=== PATIENT | female | born 1985 | race Caucasian/White ===

== ENCOUNTER 2017-02-24 02:25 | Emergency (ER) | payer SELFPAY ==
[~2017-02-24] VITALS: Ht 165.1 cm; Wt 81.6 kg
[2017-02-24] MEDS ORDERED: SODIUM CHLORIDE 0.9% 1,000 ML IVB ONE (03:04)
[2017-02-24 03:59] LABS: Basophils # (auto) 0 uL; Basophils % (auto) 0.1 % (0.0-2.0); CONDITION Y; DEFINITIVE SEE PRINTOUT; Eosinophils # (auto) 0 uL; Hematocrit 41.1 % (36.0-46.0); Hemoglobin 13.9 g/dL (12.2-16.2); Lymphocytes # (auto) 1.6 uL; Lymphocytes % (auto) 13.4 % (10.0-50.0); Mean Corpuscular Hemoglobin 35.5 pg (28.0-32.0); Mean Corpuscular Hgb Conc. 33.7 g/dL (32.0-36.0); Mean Corpuscular Volume 105.4 fL (80.0-100.0); Mean Platelet Volume 7.4 fL (7.4-10.4); Monocytes # (auto) 0.8 uL; Monocytes % (auto) 6.5 % (0.0-12.0); Neutrophils # (auto) 9.6 uL; Platelet Count (auto) 422 10^3/uL (140-450); Red Cell Distribution Width 15.6 % (11.6-16.0)
[2017-02-24 04:30] LABS: Albumin 3.5 g/dL (3.4-5.0); BUN/Creatinine Ratio 31.1; Calcium 8.3 mg/dL (8.5-10.1); Magnesium 3.7 mg/dL (1.6-2.6)
[2017-02-24 04:33] LABS: Bilirubin, Total 3.9 mg/dL (0.2-1.0); Total Protein 8.1 g/dL (6.4-8.2)
[2017-02-24 04:44] LABS: Potassium 2.7 mmol/L (3.5-5.1)
[2017-02-24] MEDS ORDERED: SODIUM CHLORIDE 0.9% 1,000 ML IV ONE (05:00)
[2017-02-24] MEDS ORDERED: IOHEXOL 300 MG/ML 100ML BOTTLE IJ ONE (06:12)
[2017-02-24] MEDS ORDERED: POTASSIUM CHL 10% (20 MEQ/15ML) 15ml ORAL SOLN PO ONE (06:45)
[2017-02-24] MEDS ORDERED: PANTOPRAZOLE 40 MG TAB PO ONE (06:45)
[2017-02-24 08:18] LABS: Urine Blood 3+ /uL (Negative); Urine Color Yellow (Yellow); Urine Glucose Normal (Normal); Urine Hyaline Cast FEW /lpf (0 - 2); Urine Ketone 3+ (Negative); Urine Mucus FEW (None Seen); Urine Nitrite Negative (Negative); Urine RBC 23 /hpf (0 - 4); Urine Squamous Epithelial Cell FEW /hpf (<5); Urine pH 6.5 (5.0-8.0)
[2017-02-24 08:19] LABS: Lactic Acid w/Reflex 4.1 mmol/L (0.4-2.0)
[2017-02-24 08:21] LABS: REFLEX LACTIC ACID YES OR NO YES
[2017-02-24 08:37] LABS: Urine Bilirubin POSITIVE (Negative)
[2017-02-24] MEDS ORDERED: LORazepam 2MG/ML-1ML VIAL IV ONE ×2 (09:45→14:00)
[2017-02-24] MEDS ORDERED: THIAMINE INJ 100 MG, MULTIPLE VITAMIN 10 ML, FOLIC ACID 1 MG, MAGNESIUM SULF SDV 50% 8 ... IV SCH ×5 (12:00)
[2017-02-24 16:48] VITALS: BP 142/61
== END 2017-02-24 16:53 | disposition short-term general hospital (02) ==
LOC: EDBD 02:25 → ER 02:31
DX: K85.90 Acute pancreatitis without necrosis or infection, unspecified (principal); E87.1 Hypo-osmolality and hyponatremia; E87.6 Hypokalemia; E86.0 Dehydration; E87.8 Other disorders of electrolyte and fluid balance, not elsewhere classified; E11.65 Type 2 diabetes mellitus with hyperglycemia; E83.41 Hypermagnesemia
CPT/HCPCS: 36415; 71020; 74177; 80053; 80307; 80320; 81001; 83605; 83690; 83735; 84443; 84702; 85025; 93005; 96361; 96365; 96366; 96375; 96376; 99285; J2060; J3411; J3475; J7030; Q9967

== ENCOUNTER 2018-06-12 08:12 | Emergency (ER) | payer MEDICAID ==
[~2018-06-12] VITALS: Ht 160 cm; Wt 81.6 kg
[2018-06-12] MEDS ORDERED: SODIUM CHLORIDE 0.9% 1,000 ML IV ONE ×2 (08:48→11:30)
[2018-06-12 09:22] LABS: Basophils # (auto) 0.1 uL; Basophils % (auto) 0.7 % (0.0-2.0); Eosinophils # (auto) 0 uL; Hematocrit 41.4 % (36.0-46.0); Hemoglobin 13.3 g/dL (12.2-16.2); Lymphocytes # (auto) 1.2 uL; Mean Corpuscular Hgb Conc. 32.1 g/dL (32.0-36.0); Mean Corpuscular Volume 96.4 fL (80.0-100.0); Monocytes # (auto) 0.8 uL; Monocytes % (auto) 7.6 % (0.0-12.0); Neutrophils # (auto) 8.2 uL; Neutrophils % (auto) 79.7 % (37.0-80.0); Nucleated Red Blood Cells % 0.1 %; Platelet Count (auto) 261 10^3/uL (140-450); Red Blood Cells 4.29 10^6/uL (4.0-5.20); Red Cell Distribution Width 18.3 % (11.8-14.3); White Blood Cell 10.3 10^3/uL (4.4-10.8)
[2018-06-12] MEDS ORDERED: chlordiazePOXIDE HCL 25 MG CAP PO ONE (09:30)
[2018-06-12 09:40] LABS: Albumin 4.3 g/dL (3.4-5.0); Calcium 8.7 mg/dL (8.5-10.1); Magnesium 2.5 mg/dL (1.6-2.6); Potassium 3.3 mmol/L (3.5-5.1)
[2018-06-12 09:51] LABS: BUN/Creatinine Ratio 16.7; Bilirubin, Total 3.4 mg/dL (0.2-1.0)
[2018-06-12] MEDS ORDERED: THIAMINE 100mg/ml INJ (200mg/2ml VIAL) IV ONE (11:30)
[2018-06-12 11:38] VITALS: BP 139/80
== END 2018-06-12 11:51 | disposition left against medical advice (07) ==
LOC: EDBD 08:12 → ER 08:14
DX: G89.4 Chronic pain syndrome (principal); M54.5 Low back pain; M25.552 Pain in left hip; R51 Headache; F10.20 Alcohol dependence, uncomplicated; F17.210 Nicotine dependence, cigarettes, uncomplicated
CPT/HCPCS: 36415; 80053; 80320; 83735; 85025; 94761; 99284; J7030

== ENCOUNTER 2018-08-30 04:58 | Emergency (ER) | payer MEDICAID ==
[~2018-08-30] VITALS: Ht 162.6 cm; Wt 70.3 kg
[2018-08-30] MEDS ORDERED: SODIUM CHLORIDE 0.9% 1,000 ML IVB ONE (12:28)
[2018-08-30] MEDS ORDERED: ONDANSETRON HCL 4 MG/2 ML VIAL IV ONE (12:30)
[2018-08-30] MEDS ORDERED: MULTIPLE VITAMIN 10 ML, MAGNESIUM SULF SDV 50% 8 MEQ in SODIUM CHLORIDE 0.9% 1,000 ML IV SCH (13:15)
[2018-08-30 17:12] LABS: Basophils # (auto) 0 uL; Basophils % (auto) 0.4 % (0.0-2.0); Eosinophils # (auto) 0 uL; Hematocrit 37.3 % (36.0-46.0); Hemoglobin 12.4 g/dL (12.2-16.2); Lymphocytes # (auto) 2.2 uL; Lymphocytes % (auto) 24.1 % (10.0-50.0); Mean Corpuscular Hemoglobin 31.6 pg (28.0-32.0); Mean Corpuscular Hgb Conc. 33.4 g/dL (32.0-36.0); Mean Corpuscular Volume 94.7 fL (80.0-100.0); Monocytes # (auto) 0.8 uL; Monocytes % (auto) 8.5 % (0.0-12.0); Neutrophils # (auto) 6.1 uL; Nucleated Red Blood Cells % 0.1 %; Platelet Count (auto) 238 10^3/uL (140-450); Red Blood Cells 3.94 10^6/uL (4.0-5.20); Red Cell Distribution Width 15.1 % (11.8-14.3); White Blood Cell 9.1 10^3/uL (4.4-10.8)
[2018-08-30] MEDS ORDERED: ALPRAZolam 0.5 MG TAB PO ONE (17:15)
[2018-08-30 17:37] LABS: Chloride 94 mmol/L (98-107); Sodium 137 mmol/L (136-145)
[2018-08-30 17:45] LABS: Alanine Aminotransferase 163 U/L (13-56); Albumin 3.9 g/dL (3.4-5.0); Alkaline Phosphatase 127 U/L (45-117); Amylase 43 U/L (25-115); Anion Gap 18 (5-15); Aspartate Aminotransferase 208 U/L (15-37); BUN/Creatinine Ratio 26.8; Bilirubin, Total 2.1 mg/dL (0.2-1.0); Blood Alcohol < 3.0 mg/dL (0-5); Blood Urea Nitrogen 19 mg/dL (7-18); Calcium 8.6 mg/dL (8.5-10.1); Carbon Dioxide 25 mmol/L (21-32); GFR African American 120 mL/min; GFR Non-African American 100 mL/min; Glucose 103 mg/dL (74-106); Lipase 112 U/L (73-393); Magnesium 1.9 mg/dL (1.6-2.6); Total Protein 8.1 g/dL (6.4-8.2)
[2018-08-30 17:54] LABS: Potassium 2.9 mmol/L (3.5-5.1)
[2018-08-30] MEDS ORDERED: POTASSIUM CHL 20 Meq TABLET PO ONE (18:15)
[2018-08-30 18:51] VITALS: BP 115/89
== END 2018-08-30 19:41 | disposition left against medical advice (07) ==
LOC: EDBD 04:58 → ER 04:58
DX: R11.2 Nausea with vomiting, unspecified (principal); F10.20 Alcohol dependence, uncomplicated; R79.89 Other specified abnormal findings of blood chemistry; E87.6 Hypokalemia; M87.88 Other osteonecrosis, other site; F17.210 Nicotine dependence, cigarettes, uncomplicated; Z53.29 Procedure and treatment not carried out because of patient's decision for other reasons
CPT/HCPCS: 36415; 73700; 74176; 80053; 80320; 82150; 83690; 83735; 84702; 85025; 94761; 96361; 96365; 96366; 96375; 99284; J2405; J3475; J7030

== ENCOUNTER → 2020-09-24 | Emergency (ER) | payer MEDICAID | END | disposition left against medical advice (07) | LOC: ER 04:27 | DX: R07.9 Chest pain, unspecified (principal); Z53.21 Procedure and treatment not carried out due to patient leaving prior to being seen by health care provider ==

== ENCOUNTER 2023-09-06 21:33 | Emergency (ER) | payer MEDICAID ==
[~2023-09-06] VITALS: Ht 157.5 cm; Wt 63.5 kg
[2023-09-06 21:39] VITALS: BP 147/95; PULSE 120; RESP 24; O2SAT 100
== END 2023-09-06 23:06 | disposition left against medical advice (07) ==
LOC: EDBD 21:33 → EDUNIT# 21:33 → ER 21:33
DX: N89.8 Other specified noninflammatory disorders of vagina (principal); Z53.21 Procedure and treatment not carried out due to patient leaving prior to being seen by health care provider

== ENCOUNTER 2024-09-07 05:49 | Emergency (ER) | payer MEDICAID ==
[~2024-09-07] VITALS: Ht 157.5 cm; Wt 75.0 kg
[2024-09-07 10:04] VITALS: BP 144/96; TEMP 98
[2024-09-07 10:07] VITALS: PULSE 123; RESP 16; O2SAT 99
--- NOTE | 2024-09-07 10:23 | ED.PDOC ---
History of Present Illness HPI Comments 39F presents to the Er w/ no prior Hx associated to the c/c of Mental Health. Pt reports that her hands go numb, near syncope4 and palpitations as well as "I feel like I am going to ." Pt states "I feel sand on my feet and then it goes to my thighs". Pt notes that her hair is falling out, as well as her teeth. Pt states "I am shitting worms". PMHx of Anxiety, Depression. Denies chills, fever, N/V/D, SOB or no other associated symptom's, modifiers, recent injuries or sick contacts at this time. Chief Complaint: Mental Health Time Seen by MD: 09:30 Primary Care Provider: ANGÉLICA Reviewed Notes: Nurses Notes, Medications, Allergies Allergies: Coded Allergies: Codeine (Verified Allergy, Unknown, 09/06/23) Home Meds No Active Prescriptions or Reported Meds Information Source: Patient Mode of Arrival: Ambulatory Severity: Moderate Timing: Came on: Gradually Duration: Since onset Prehospital treatment: None Past Medical History PAST MEDICAL HISTORY: Anxiety, Depression Surgical History: Unknown CARDIOVASCULAR OR NURSE History: Unknown Family History Family History: Unknown Social History Smoker: Non-Smoker Alcohol: Denies ETOH Use Drugs: Denies Drug Use Lives In: Home Constitutional: denies: chills, diaphoresis, fatigue, fever, malaise, sweats, weakness, others EENTM: denies: blurred vision, double vision, ear bleeding, ear discharge, ear drainage, ear pain, ear ringing, eye pain, eye redness, hearing loss, mouth pain, mouth swelling, nasal discharge, nose bleeding, nose congestion, nose pain, photophobia, tearing, throat pain, throat swelling, voice changes, others Respiratory: denies: cough, hemoptysis, orthopnea, SOB at rest, shortness of breath, SOB with excertion, stridor, wheezing, others Cardiovascular: denies: chest pain, dizzy spells, diaphoresis, Dyspnea on exertion, edema, irregular heart beat, left arm pain, lightheadedness, palpitations, PND, syncope, others Gastrointestinal: denies: abdomen distended, abdominal pain, blood streaked bowels, constipated, diarrhea, dysphagia, difficulty swallowing, hematemesis, melena, nausea, poor appetite, poor fluid intake, rectal bleeding, rectal pain, vomiting, others Genitourinary: denies: abnormal vagina bleeding, burning, dyspareunia, dysuria, flank pain, frequency, hematuria, incontinence, pain, , vagina discharge, urgency, others Neurological: denies: dizziness, fainting, headache, left sided numbness, left sided weakness, numbness, paresthesia, pre-existing deficit, right sided numbness, right sided weakness, seizure, speech problems, tingling, tremors, weakness, others Musculoskeletal: denies: back pain, gout, joint pain, joint swelling, muscle pain, muscle stiffness, neck pain, others Integumetry: denies: bruises, change in color, change in hair/nails, dryness, laceration, lesions, lumps, rash, wounds, others Allergic/Immunocompromised: denies: Difficulty Healing, Frequent Infections, Hives, Itching, others Hematologic/Lymphatic: denies: anemia, blood clots, easy bleeding, easy bruising, swollen glands, others Endocrine: denies: excessive hunger, excessive sweating, excessive thirst, excessive urination, flushing, intolerance to cold, intolerance to heat, unexplained weight gain, unexplained weight loss, others Psychiatric: reports: schizophrenia; denies: anxiety, bipolar disorder, depression, hopeless, panic disorder, sleepless, suicidal, others All Other Systems: Reviewed and Negative Physical Exam General Appearance: Moderate Distress, Normal HEENT: Normal ENT Inspection, Pharynx Normal, TMs Normal Neck: Full Range of Motion, Non-Tender, Normal, Normal Inspection Respiratory: Chest Non-Tender, Lungs Clear, No Accessory Muscle Use, No Respiratory Distress, Normal Breath Sounds Cardiovascular: No Edema, No JVD, No Murmur, No Gallop, Normal Peripheral Pulses, Regular Rate/Rhythm Breast Exam: Deferred Gastrointestinal: No Organomegaly, Non Tender, No Pulsatile Mass, Normal Bowel Sounds, Soft Genitalia: Deferred Pelvic: Deferred Rectal: Deferred Extremities: No calf tenderness, Normal capillary refill, Normal inspection, Normal range of motion, Non-tender, No pedal edema Musculoskeletal : Apperance: Normal Neurologic: Alert, 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 Was a procedure done?: No Differential Dx Considerations may include: Drug use Electrolyte imbalance X-Ray, Labs, Meds, VS Vital Signs Date Time Temp Pulse Resp B/P (MAP) Pulse Ox O2 Delivery O2 Flow Rate FiO2 09/07/24 10:07 123 16 99 Room Air* 0 21 09/07/24 10:04 98.0 123 18 144/96 (112) 99 98.0 09/07/24 05:49 98.1 110 18 114/83 (93) 100 98.1 Patient alert. Anxious. Vitals stable. Answering questions. Saturation pristine on room air. No leg swelling. No shortness a breath. No chest pain. Medically cleared. Psychiatric evaluation. Continue to monitor. Time of 1ST Reevaluation: 10:00 Reevaluation 1ST: Improved Patient Education/Counseling: Diagnosis, Treatment, Prognosis Family Education/Counseling: Diagnosis, Treatment, Prognosis Departure 1 Departure Time of Disposition: 11:18 Impression: Primary Impression: Drug use Disposition: 30 STILL A PATIENT Condition: Good e-Prescriptions No Active Prescriptions or Reported Meds Critical Care Note Critical Care Time?: No Stability Stability form required: No Heart Score Heart Score: Heart Score Response (Comments) Value History N/A 0 EKG N/A 0 Age N/A 0 Risk Factors N/A 0 Troponin N/A 0 Total 0 I personally scribed for NIMESH LARRY MD ([email or web address]) on 09/07/24 at 10:22. Electronically submitted by Duarte Lyn ([email or web address]). NIMESH LARRY MD Sep 07, 2024 10:22
[2024-09-07] MEDS: LORazepam 2MG/ML-1ML VIAL IM ONE (11:24)
[2024-09-07 11:46] LABS: Amphetamine Screen, Urine Pos (NEGATIVE); Barbiturate Scree,Urine Neg (NEGATIVE); Benzodiazephine Screen, Urine Pos (NEGATIVE); Cannabinoid Screen, Urine Neg (NEGATIVE); Cocaine Screen, Urine Neg (NEGATIVE); Opiate Scree,Urine Neg (NEGATIVE); Phencyclidine Screen, Urine Neg (NEGATIVE)
== END 2024-09-07 06:43 | disposition home or self-care (01) ==
LOC: ER 05:49
DX: F19.90 Other psychoactive substance use, unspecified, uncomplicated (principal); F41.9 Anxiety disorder, unspecified; F32.9 Major depressive disorder, single episode, unspecified; Z88.5 Allergy status to narcotic agent; Z79.899 Other long term (current) drug therapy
CPT/HCPCS: 80307; 96372; 99283; J2060

== ENCOUNTER 2024-09-07 09:08 | Emergency (ER) | payer MEDICAID ==
--- NOTE | 2024-09-07 09:56 | ED.PDOC ---
History of Present Illness HPI Comments 39F presents to the ER w/ no prior Hx associated to the c/c of Mental Health. Pt reports that her hands go numb, feels like she is going to pass out and has a fast heart beat and then states "I feel like I am going to ". Pt states "I feel sand on bottom of feet then it goes to my thighs" and states that her teeth, and hair have been falling out. Pt notes "I am shitting worms". PMHx of Anxiety, Depression, A1. Denies chills, fever, N/V/D, SOB, CP or no other associated symptom's, modifiers, recent injuries or sick contacts at this time. Time Seen by MD: 09:30 Primary Care Provider: ANGÉLICA Reviewed Notes: Nurses Notes, Medications, Allergies Allergies: Coded Allergies: Codeine (Verified Allergy, Unknown, 09/06/23) Home Meds No Active Prescriptions or Reported Meds Information Source: Patient Mode of Arrival: Ambulatory Severity: Moderate Timing: Came on: Gradually Duration: Since onset Prehospital treatment: None Past Medical History PAST MEDICAL HISTORY: Anxiety, Depression Past Medical History (Other): A1 Surgical History: Unknown MITT[employer]WER History: Unknown Family History Family History: Unknown Social History Smoker: Non-Smoker Alcohol: Denies ETOH Use Drugs: Denies Drug Use Lives In: Home Constitutional: denies: chills, diaphoresis, fatigue, fever, malaise, sweats, weakness, others EENTM: denies: blurred vision, double vision, ear bleeding, ear discharge, ear drainage, ear pain, ear ringing, eye pain, eye redness, hearing loss, mouth pain, mouth swelling, nasal discharge, nose bleeding, nose congestion, nose pain, photophobia, tearing, throat pain, throat swelling, voice changes, others Respiratory: denies: cough, hemoptysis, orthopnea, SOB at rest, shortness of breath, SOB with excertion, stridor, wheezing, others Cardiovascular: denies: chest pain, dizzy spells, diaphoresis, Dyspnea on exertion, edema, irregular heart beat, left arm pain, lightheadedness, palpitations, PND, syncope, others Gastrointestinal: denies: abdomen distended, abdominal pain, blood streaked bowels, constipated, diarrhea, dysphagia, difficulty swallowing, hematemesis, melena, nausea, poor appetite, poor fluid intake, rectal bleeding, rectal pain, vomiting, others Genitourinary: denies: abnormal vagina bleeding, burning, dyspareunia, dysuria, flank pain, frequency, hematuria, incontinence, pain, , vagina discharge, urgency, others Neurological: denies: dizziness, fainting, headache, left sided numbness, left sided weakness, numbness, paresthesia, pre-existing deficit, right sided numbness, right sided weakness, seizure, speech problems, tingling, tremors, weakness, others Musculoskeletal: denies: back pain, gout, joint pain, joint swelling, muscle pain, muscle stiffness, neck pain, others Integumetry: denies: bruises, change in color, change in hair/nails, dryness, laceration, lesions, lumps, rash, wounds, others Allergic/Immunocompromised: denies: Difficulty Healing, Frequent Infections, Hi ves, Itching, others Hematologic/Lymphatic: denies: anemia, blood clots, easy bleeding, easy bruising, swollen glands, others Endocrine: denies: excessive hunger, excessive sweating, excessive thirst, excessive urination, flushing, intolerance to cold, intolerance to heat, unexplained weight gain, unexplained weight loss, others Psychiatric: reports: schizophrenia; denies: anxiety, bipolar disorder, depression, hopeless, panic disorder, sleepless, suicidal, others All Other Systems: Reviewed and Negative Physical Exam General Appearance: Moderate Distress, Normal HEENT: Normal ENT Inspection, Pharynx Normal, TMs Normal Neck: Full Range of Motion, Non-Tender, Normal, Normal Inspection Respiratory: Chest Non-Tender, Lungs Clear, No Accessory Muscle Use, No Respiratory Distress, Normal Breath Sounds Cardiovascular: No Edema, No JVD, No Murmur, No Gallop, Normal Peripheral Pulses, Regular Rate/Rhythm Breast Exam: Deferred Gastrointestinal: No Organomegaly, Non Tender, No Pulsatile Mass, Normal Bowel Sounds, Soft Genitalia: Deferred Pelvic: Deferred Rectal: Deferred Extremities: No calf tenderness, Normal capillary refill, Normal inspection, Normal range of motion, Non-tender, No pedal edema Musculoskeletal : Apperance: Normal Neurologic: Alert, 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 Was a procedure done?: No Differential Dx Considerations may include: Drug use Electrolyte imbalance X-Ray, Labs, Meds, VS Patient alert. Anxiety. Vitals stable. Answering all questions. Abdomen is soft nontender. Medically cleared. Psychiatric evaluation. Time of 1ST Reevaluation: 10:00 Reevaluation 1ST: Improved Patient Education/Counseling: Diagnosis, Treatment, Prognosis Family Education/Counseling: Diagnosis, Treatment, Prognosis Departure 1 Departure Time of Disposition: 17:13 Impression: Primary Impression: Drug use Disposition: 30 STILL A PATIENT Condition: Good e-Prescriptions No Active Prescriptions or Reported Meds Critical Care Note Critical Care Time?: No Stability Stability form required: No Heart Score Heart Score: Heart Score Response (Comments) Value History N/A 0 EKG N/A 0 Age N/A 0 Risk Factors N/A 0 Troponin N/A 0 Total 0 I personally scribed for NIMESH LARRY MD ([email or web address]) on 09/07/24 at 09:56. Electronically submitted by Duarte Lyn ([email or web address]). NIMESH LARRY MD Sep 07, 2024 09:56
--- NOTE | 2024-09-07 12:25 | DVHINCON2 ---
Date of Service if different f: Sep 07, 2024 Time of Service: 11:51 Consultation ([facility]) Consulting Physician: MARY DURBIN MD Appearance: Stated age Psychomotor activity: WNL Behavioral: Cooperative Eye contact: Appropriate Speech: WNL Affect: Appropriate, Mood Congruent Mood: Anxious Thought processes: Linear/Goal-directed Thought content: WNL Suicidal ideations: Absent Homicidal ideations: Absent Orientation: Person, Place, Time, Situation Memory intact: Recent Intellect: Average Abstractability: WNL Concentration: Adequate Attention: Adequate Judgement: WNL Insight: Fair Treatment plan discussed: With staff Medication adjusted: No Labs ordered: No Psychotherapy provided: No Type: Voluntary History of Present Illness Reason for Consult : psychiatric evaluation PER ED PHYSICIAN: 39F presents to the ER w/ no prior Hx associated to the c/c of Mental Health. Pt reports that her hands go numb, feels like she is going to pass out and has a fast heart beat and then states "I feel like I am going to ". Pt states "I feel sand on bottom of feet then it goes to my thighs" and states that her teeth, and hair have been falling out. Pt notes "I am shitting worms". PMHx of Anxiety, Depression, A1. Denies chills, fever, N/V/D, SOB, CP or no other associated symptom's, modifiers, recent injuries or sick contacts at this time. PSYCHIATRIST HPI: The patient was seen and evaluated at [facility] ED via telepsychiatry platform. 39 yr old female reported she has no desire to . She noted she missed her vraylar and wellbutrin for about a week and hasn't taken them the past two days. She noted she has some memory issues and forgot to take it. She stated she feels anxious because her fiance took her in to get seen. Her UDS was positive for meth and fentanyl, however she denied ever using fentanyl and stated her last meth use was ten days ago. She stated she feels comfrotable following up with her outpatient psychiatrist tomorrow and has her medications at home which she intends to take. She denied having auditory or visual hallucinations and denied being suicidal or homicidal. Past Psychiatric History: diagnosed with bipolar disorder. One hospitalization for major depression several years ago. Sees psychiatrist and has appointment tomorrow. Current psych medications: Wellbutrin 300mg qam Vraylar 3mg qhs Hydroxyzine Past Medical History : avascular necrosis of hips, uterine fibroids. ALLERGY TO Codeine. Fibroid surgery is scheduled for October 15. Substance use: Alcohol-1 or 2 beat boxes every other day. She reported using meth "back in the day". Last used ten days. She denied using fentanyl ever. Denied use of other substances Social History : Lives in [place] with ance. On disability. Unemployed. DIAGNOSIS: UNSPECIFIED BIPOLAR DISORDER; Meth use disorder; rule out fentanyl use disorder Formulation: This 39 yr old female appears to suffer from bipolar disorder and has been off her medications. She also had UDS positive for fentanyl and meth so her complaints could be related to substance use although she denied using any substances in the past week. She may benefit from continuing on her outpatient regimen and refraining from substance use. Plan: 1. Safety. The patient is a low risk for self harm and may be managed as an outpatient. 2. Legal-voluntary. 3. Medications: continue outpatient regimen. Recommend following up with outpatient mental health for medication management and therapy. 4. Case discussed with ED Physician Dr Urias. 5. Please recontact psychiatry for further follow up or reevaluation. Assessment/Diagnosis/Plan Reviewed: Labs, Medications, Previous Orders MARY DURBIN MD Sep 07, 2024 11:53
== END 2024-09-07 09:13 | disposition left against medical advice (07) ==
LOC: ER 09:08
DX: F19.90 Other psychoactive substance use, unspecified, uncomplicated (principal); F32.9 Major depressive disorder, single episode, unspecified